=== PATIENT | male | born 1955 | race Caucasian/White ===

== ENCOUNTER 2017-02-12 01:43 | Emergency (ER) | payer MEDICARE | END 2017-02-12 02:25 | disposition home or self-care (01) | LOC: D.ER 01:43 | DX: M54.5 Low back pain (principal); M25.561 Pain in right knee; M79.641 Pain in right hand; W01.0XXA Fall on same level from slipping, tripping and stumbling without subsequent striking against object, initial encounter; Y93.89 Activity, other specified; Y92.89 Other specified places as the place of occurrence of the external cause; E11.9 Type 2 diabetes mellitus without complications; I10 Essential (primary) hypertension; F17.200 Nicotine dependence, unspecified, uncomplicated ==

== ENCOUNTER 2017-04-02 14:39 | Emergency (ER) | payer MEDICARE | END 2017-04-02 17:26 | disposition home or self-care (01) | LOC: D.ER 14:39 | DX: S00.83XA Contusion of other part of head, initial encounter (principal); W22.01XA Walked into wall, initial encounter; Y93.89 Activity, other specified; Y92.029 Unspecified place in mobile home as the place of occurrence of the external cause; S02.5XXA Fracture of tooth (traumatic), initial encounter for closed fracture; F17.200 Nicotine dependence, unspecified, uncomplicated ==

== ENCOUNTER 2017-07-27 08:47 | Emergency (ER) | payer MEDICARE ==
[2017-07-27 10:20] LABS: BASOPHILS 0.2 % (0-2); EOSINOPHILS 1.1 % (0-7); HEMATOCRIT 38.7 % (42.0-54.0); HEMOGLOBIN 12.9 g/dL (13.5-17.5); IMMATURE GRANULOCYTES 0.3 % (0-5); LYMPHOCYTES 18.1 % (15-50); MCH 27.3 pg (26.0-34.0); MCHC 33.3 g/dL (31.0-37.0); MEAN PLATELET VOLUME 9.3 fL (7.4-10.4); MONOCYTES 10.2 % (2-11); NEUTROPHILS 70.1 % (40-80); PLATELET COUNT 193 10x3/uL (130-400); RBC 4.72 10x6/uL (4.20-6.10); RDW 16.3 % (11.5-14.5); WBC 9.7 10x3/uL (4.8-10.8)
== END 2017-07-27 12:01 | disposition home or self-care (01) ==
LOC: D.ER 08:47
PROVIDERS: Family Medicine
DX: L03.116 Cellulitis of left lower limb (principal); M54.16 Radiculopathy, lumbar region; E11.9 Type 2 diabetes mellitus without complications; Z89.511 Acquired absence of right leg below knee; F17.200 Nicotine dependence, unspecified, uncomplicated

== ENCOUNTER 2017-09-21 10:36 | Emergency (ER) | payer MEDICARE ==
[2017-09-21 11:39] LABS: HEMATOCRIT 39.4 % (42.0-54.0); HEMOGLOBIN 13.4 g/dL (13.5-17.5); LYMPHOCYTES 15.3 % (15-50); MCH 29.1 pg (26.0-34.0); MCV 85.5 fL (80.0-100.0); MEAN PLATELET VOLUME 9.3 fL (7.4-10.4); NEUTROPHILS 75.5 % (40-80); PLATELET COUNT 243 10x3/uL (130-400); RBC 4.61 10x6/uL (4.20-6.10); RDW 15.8 % (11.5-14.5); WBC 11.6 10x3/uL (4.8-10.8)
[2017-09-21 12:05] LABS: ALBUMIN 2.9 g/dL (3.4-5.0); ALKALINE PHOSPHATASE 108 U/L (46-116); ALT (SGPT) 41 U/L (10-68); BILIRUBIN - TOTAL 0.62 mg/dL (0.2-1.3); CALC OSMOLALITY 288 mosm/kg (275-300); CALCIUM 8.6 mg/dL (8.5-10.1); CARBON DIOXIDE 30.5 mmol/L (21.0-32.0); CHLORIDE - SERUM 100 mmol/L (98-107); CREATININE - SERUM 0.8 mg/dL (0.6-1.3); GLUCOSE 355 mg/dL (74-106); PROTEIN - SERUM 7.5 g/dL (6.4-8.2); SODIUM 138 mmol/L (136-145); UREA NITROGEN 11 mg/dL (7-18); eGFR NON AFRICAN AMERICAN > 90 mL/min (90-120)
== END 2017-09-21 12:50 | disposition home or self-care (01) ==
LOC: D.ER 10:36
PROVIDERS: Emergency Medicine
DX: L03.012 Cellulitis of left finger (principal); E11.65 Type 2 diabetes mellitus with hyperglycemia; Z79.4 Long term (current) use of insulin; F17.200 Nicotine dependence, unspecified, uncomplicated

== ENCOUNTER 2017-11-23 16:25 | Emergency (ER) | payer MEDICARE ==
[~2017-11-23] VITALS: Ht 177.8 cm; Wt 69.5 kg
[2017-11-23 16:46] VITALS: Ht 177.8 cm; Wt 69.5 kg
[2017-11-23] MEDS ORDERED: GLUCOPHAGE1000 MG PO (16:46)
[2017-11-23] MEDS ORDERED: ZESTRIL40 MG PO (16:46)
[2017-11-23] MEDS ORDERED: ADVIL200 MG PO (16:47)
[2017-11-23] MEDS ORDERED: NEURONTIN600 MG PO (16:47)
[2017-11-23] MEDS ORDERED: CLEOCIN HCL300 MG PO (20:42)
[2017-11-23 20:53] VITALS: BP 140/85
== END 2017-11-23 20:54 | disposition home or self-care (01) ==
LOC: D.ER 16:25
DX: L03.012 Cellulitis of left finger (principal); Z89.511 Acquired absence of right leg below knee; E11.9 Type 2 diabetes mellitus without complications; I10 Essential (primary) hypertension; F17.200 Nicotine dependence, unspecified, uncomplicated

== ENCOUNTER 2018-03-17 23:25 | Observation (INO) | payer MEDICARE, MEDICAID ==
[~2018-03-17] VITALS: Ht 177.8 cm; Wt 81.6 kg
[~2018-03-17 23:25] MED LIST: ADVIL200 MG PO; CLEOCIN HCL300 MG PO; GLUCOPHAGE1000 MG PO; NEURONTIN600 MG PO; ZESTRIL40 MG PO
[2018-03-18] VITALS (9 sets, daily range): BP systolic 141–159; BP diastolic 75–92; Ht 177.8 cm; Wt 81.6 kg
[2018-03-18 00:06] LABS: HEMOGLOBIN 12.2 g/dL (13.5-17.5); LYMPHOCYTES 25.4 % (15-50); MCH 30.7 pg (26.0-34.0); MCHC 34.9 g/dL (31.0-37.0); MCV 88.2 fL (80.0-100.0); MEAN PLATELET VOLUME 8.6 fL (7.4-10.4); NEUTROPHILS 60.9 % (40-80); PLATELET COUNT 202 10x3/uL (130-400); RBC 3.97 10x6/uL (4.20-6.10); WBC 6.6 10x3/uL (4.8-10.8)
[2018-03-18 00:18] LABS: APTT 29.3 SECONDS (22.8-39.4)
[2018-03-18 00:19] LABS: D-DIMER-QUANTITATIVE < 0.27 ug/mLFEU (0.20-0.54); PROTIME 13.8 SECONDS (11.6-15.0)
[2018-03-18 00:21] LABS: ALBUMIN 3.3 g/dL (3.4-5.0); ALKALINE PHOSPHATASE 92 U/L (46-116); ALT (SGPT) 74 U/L (10-68); BILIRUBIN - TOTAL 0.61 mg/dL (0.2-1.3); CALC OSMOLALITY 279 mosm/kg (275-300); CALCIUM 8.4 mg/dL (8.5-10.1); CARBON DIOXIDE 30.2 mmol/L (21.0-32.0); CHLORIDE - SERUM 103 mmol/L (98-107); CREATININE - SERUM 0.8 mg/dL (0.6-1.3); PROTEIN - SERUM 7.8 g/dL (6.4-8.2); SODIUM 137 mmol/L (136-145); UREA NITROGEN 10 mg/dL (7-18); eGFR NON AFRICAN AMERICAN > 90 mL/min (90-120)
[2018-03-18 00:22] LABS: GLUCOSE 227 mg/dL (74-106)
[2018-03-18 00:23] LABS: AMYLASE - SERUM 20 U/L (25-115); CKMB 2.4 U/L (0.0-3.6); CREATINE KINASE 37 UL (21-232); LIPASE 128 U/L (73-393); MAGNESIUM - SERUM 1.7 mg/dL (1.8-2.4); THYROID STIMULATING HORMONE 0.65 uIU/mL (0.36-3.74); TROPONIN-I 0.026 ng/mL (0.000-0.060)
[2018-03-18 02:57] LABS: APPEARANCE CLEAR (CLEAR); BILIRUBIN NEGATIVE (NEGATIVE); COLOR YELLOW (YELLOW); GLUCOSE 100 mg/dL (NEGATIVE); KETONE NEGATIVE (NEGATIVE); NITRITE NEGATIVE (NEGATIVE); PROTEIN TRACE mg/dL (NEGATIVE); UROBILINOGEN NORMAL (NORMAL)
[2018-03-18 02:58] LABS: BACTERIA FEW /hpf (NONE SEEN); EPITHELIAL CELLS 0-5 /hpf (0-5); RED CELLS - URINE 0-5 /hpf (0-5); WHITE CELLS - URINE 0-5 /hpf (0-5)
[2018-03-18 03:01] LABS: UDS - AMPHET POSITIVE QUAL (NEGATIVE); UDS - BARB NEGATIVE QUAL (NEGATIVE); UDS - BENZO NEGATIVE QUAL (NEGATIVE); UDS - COCAINE NEGATIVE QUAL (NEGATIVE); UDS - OPIATE NEGATIVE QUAL (NEGATIVE); UDS - PCP NEGATIVE QUAL (NEGATIVE); UDS - THC POSITIVE QUAL (NEGATIVE)
[2018-03-18] MEDS ORDERED: AMBIEN5 MG (03:58)
[2018-03-19] VITALS: BP 150/78
[2018-03-19 04:00] VITALS: BP 152/82
[2018-03-19 05:22] LABS: BASOPHILS 0.3 % (0-2); EOSINOPHILS 1.5 % (0-7); HEMATOCRIT 38.3 % (42.0-54.0); HEMOGLOBIN 13.3 g/dL (13.5-17.5); IMMATURE GRANULOCYTES 0.3 % (0-5); LYMPHOCYTES 34.2 % (15-50); MCH 30.8 pg (26.0-34.0); MCHC 34.7 g/dL (31.0-37.0); MCV 88.7 fL (80.0-100.0); MEAN PLATELET VOLUME 9.3 fL (7.4-10.4); MONOCYTES 13.5 % (2-11); NEUTROPHILS 50.2 % (40-80); PLATELET COUNT 171 10x3/uL (130-400); RBC 4.32 10x6/uL (4.20-6.10); RDW 14.3 % (11.5-14.5); WBC 6.8 10x3/uL (4.8-10.8)
[2018-03-19 05:53] LABS: ALBUMIN 2.9 g/dL (3.4-5.0); ALKALINE PHOSPHATASE 88 U/L (46-116); ALT (SGPT) 73 U/L (10-68); CALC OSMOLALITY 278 mosm/kg (275-300); CALCIUM 8.3 mg/dL (8.5-10.1); CARBON DIOXIDE 30.1 mmol/L (21.0-32.0); CHLORIDE - SERUM 103 mmol/L (98-107); CREATININE - SERUM 0.8 mg/dL (0.6-1.3); GLUCOSE 166 mg/dL (74-106); MAGNESIUM - SERUM 1.8 mg/dL (1.8-2.4); POTASSIUM - SERUM 3.7 mmol/L (3.5-5.1); PROTEIN - SERUM 7.3 g/dL (6.4-8.2); SODIUM 138 mmol/L (136-145); UREA NITROGEN 11 mg/dL (7-18); eGFR NON AFRICAN AMERICAN > 90 mL/min (90-120)
[2018-03-19 07:54] VITALS: BP 155/97
== END 2018-03-19 15:49 | disposition home or self-care (01) ==
LOC: D.ER 23:25 → OBSVTIME 03-18 02:53 → D.M2 03-18 02:53
PROVIDERS: Family Medicine
DX: T42.6X1A Poisoning by other antiepileptic and sedative-hypnotic drugs, accidental (unintentional), initial encounter (principal); R40.0 Somnolence; E11.65 Type 2 diabetes mellitus with hyperglycemia; E11.40 Type 2 diabetes mellitus with diabetic neuropathy, unspecified; K75.9 Inflammatory liver disease, unspecified; I10 Essential (primary) hypertension; F31.30 Bipolar disorder, current episode depressed, mild or moderate severity, unspecified; Z72.0 Tobacco use

== ENCOUNTER 2018-11-24 12:58 | Emergency (ER) | payer MEDICARE, MEDICAID ==
[~2018-11-24] VITALS: Ht 177.8 cm; Wt 68.2 kg
[~2018-11-24 12:58] MED LIST changes: +AMBIEN5 MG
[2018-11-24 13:04] VITALS: Ht 177.8 cm; Wt 68.2 kg
[2018-11-24 13:57] LABS: APTT 28.7 SECONDS (22.8-39.4); INR 1.16 (0.85-1.17); PROTIME 14.3 SECONDS (11.6-15.0)
[2018-11-24 14:01] LABS: BASOPHILS 0.4 % (0-2); EOSINOPHILS 2.3 % (0-7); HEMATOCRIT 34.5 % (42.0-54.0); LYMPHOCYTES 31.2 % (15-50); MCH 25.5 pg (26.0-34.0); MCHC 31.9 g/dL (31.0-37.0); MEAN PLATELET VOLUME 9.7 fL (7.4-10.4); MONOCYTES 13.4 % (2-11); NEUTROPHILS 52.7 % (40-80); RBC 4.31 10x6/uL (4.20-6.10); RDW 14.9 % (11.5-14.5); WBC 6.9 10x3/uL (4.8-10.8)
[2018-11-24 14:02] LABS: PLATELET COUNT 334 10x3/uL (130-400)
[2018-11-24 14:04] LABS: ALBUMIN 3.2 g/dL (3.4-5.0); ALKALINE PHOSPHATASE 98 U/L (46-116); ALT (SGPT) 83 U/L (10-68); BILIRUBIN - TOTAL 0.24 mg/dL (0.2-1.3); CALC OSMOLALITY 291 mosm/kg (275-300); CALCIUM 8.5 mg/dL (8.5-10.1); CARBON DIOXIDE 31.6 mmol/L (21.0-32.0); CHLORIDE - SERUM 105 mmol/L (98-107); CREATININE - SERUM 0.8 mg/dL (0.6-1.3); GLUCOSE 212 mg/dL (74-106); POTASSIUM - SERUM 3.3 mmol/L (3.5-5.1); PROTEIN - SERUM 7.4 g/dL (6.4-8.2); SODIUM 143 mmol/L (136-145); UREA NITROGEN 15 mg/dL (7-18); eGFR NON AFRICAN AMERICAN > 90 mL/min (90-120)
[2018-11-24 14:07] LABS: CKMB 3.6 U/L (0.0-3.6); CREATINE KINASE 60 UL (21-232); MAGNESIUM - SERUM 1.6 mg/dL (1.8-2.4); THYROID STIMULATING HORMONE 0.71 uIU/mL (0.36-3.74); TROPONIN-I 0.019 ng/mL (0.000-0.060)
[2018-11-24 16:22] LABS: UDS - AMPHET POSITIVE QUAL (NEGATIVE); UDS - BARB NEGATIVE QUAL (NEGATIVE); UDS - BENZO NEGATIVE QUAL (NEGATIVE); UDS - COCAINE NEGATIVE QUAL (NEGATIVE); UDS - OPIATE NEGATIVE QUAL (NEGATIVE); UDS - PCP NEGATIVE QUAL (NEGATIVE); UDS - THC POSITIVE QUAL (NEGATIVE)
[2018-11-24 16:43] LABS: APPEARANCE CLEAR (CLEAR); BILIRUBIN NEGATIVE (NEGATIVE); COLOR YELLOW (YELLOW); GLUCOSE 100 mg/dL (NEGATIVE); KETONE NEGATIVE (NEGATIVE); NITRITE NEGATIVE (NEGATIVE); PROTEIN NEGATIVE (NEGATIVE); UROBILINOGEN NORMAL (NORMAL)
[2018-11-24 21:21] VITALS: BP 138/77
== END 2018-11-24 21:21 | disposition home or self-care (01) ==
LOC: D.ER 12:58
PROVIDERS: Family Medicine
DX: F19.90 Other psychoactive substance use, unspecified, uncomplicated (principal); F15.10 Other stimulant abuse, uncomplicated; F13.90 Sedative, hypnotic, or anxiolytic use, unspecified, uncomplicated